=== PATIENT | male | born 1975 | race Caucasian/White ===

== ENCOUNTER 2016-10-16 23:03 | Emergency (ER) | payer OTHER ==
[~2016-10-16] VITALS: Ht 182.9 cm; Wt 104.3 kg
[~2016-10-16 23:03] MED LIST: BACTRIM DS TAB1 EACH PO; KEFLEX500 M1 PO; PERCOCET 5-3251 EACH PO
--- NOTE | 2016-10-16 23:32 | ED CARDIAC/CP/PALPITATIONS ---
History of Present Illness General Chief Complaint: Chest Pain Stated Complaint: PER PT CHEST PAIN AND SOB Source: patient Exam Limitations: no limitations Vital Signs & Intake/Output Vital Signs & Intake/Output Vital Signs Date Time Temp Pulse Resp B/P Pulse O2 O2 Flow FiO2 Ox Delivery Rate 10/17 0355 97.0 72 18 117/59 97 Room Air 10/16 2343 146/87 10/16 2342 141/84 10/16 2322 98 Room Air 10/16 2315 97.8 83 20 147/85 94 Room Air ED Intake and Output 10/17 0000 10/16 1200 Intake Total Output Total Balance Patient 230 lb Weight Allergies Coded Allergies: NO KNOWN ALLERGIES (07/17/16) Reconcile Medications Cephalexin (Keflex) 500 MG CAPSULE 1 CAP PO 4 TIMES/DAY cellulitis Oxycodone HCl/Acetaminophen (Percocet 5-325 MG Tablet) 1 EACH TABLET 1 TAB PO 4XDP PRN PAIN TEN...[id number] Sulfamethoxazole/Trimethoprim (Bactrim Ds Tablet) 1 EACH TABLET 1 TAB PO BID cellulitis Triage Note: PT FROM HOME C/O CP. PT STATES THAT CP STARTED YESTERDAY INTERMITTENTLY WITH SOME ACID REFLUX. PT STATES THAT PAIN WORSENED TODAY AND INTENSIFIED RADIATING TO RIGHT ARM TINGLING, PT DENIES JAW PAIN, WONG DIZZINESS. EKD IMMEDIATELY TO [facility], PT BROUGHT TO 1 AND SHIVA STUDENT IN FOR EVAL. Triage Nurses Notes Reviewed? yes HPI: Patient is a 40 year old male with history of diabetes presents complaining of chest pain x 2 days. Pain is a midsternal tightness sensation that worsens with deep breath, palpation, coughing. Pain is currently a 7 out of 10. Pain is worse today than yesterday. Associated dyspepsia sensation yesterday. Took tums yesterday with no improvement. Approximately 2 hours ago patient developed right scapular pain. Patient had a cough and upper respiratory infection last week that he reports has resolved. Denies orthopnea, lower extremity pain, lower extremity swelling, fevers. (MIRZA PABLO) Past History Travel History Traveled to [place] past 21 day No Medical History Any Pertinent Medical History? 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 No (MIRZA PABLO) Review of Systems Review of Systems Constitutional: Reports: no symptoms. EENTM: Reports: no symptoms. Respiratory: Reports: cough (LAST WEEK, RESOLVED), short of breath (WITH DEEP BREATH). Cardiovascular: Reports: see HPI. GI: Denies: abdominal pain, nausea, vomiting. Genitourinary: Reports: no symptoms. Musculoskeletal: Reports: back pain (RIGHT SCAPULA). Skin: Reports: no symptoms. Neurological/Psychological: Reports: no symptoms. Hematologic/Endocrine: Reports: no symptoms. Immunologic/Allergic: Reports: no symptoms. (MIRZA PABLO) Physical Exam Physical Exam General Appearance: well developed/nourished, alert, awake, obese Head: atraumatic, normal appearance Eyes: Bilateral: normal appearance, PERRL, EOMI. Ears, Nose, Throat: normal pharynx, normal ENT inspection, hearing grossly normal Neck: normal inspection, supple, full range of motion Respiratory: lungs clear, MIDSTERNAL CHEST TENDERNESS THAT REPRODUCES PATIENT'S PAIN, MILD TACHYPNEA Cardiovascular: regular rate/rhythm, NO APPRECIABLE MURMUR, RUB, GALLOP Peripheral Pulses: 2+ radial (R), 2+ radial (L), 2+ dorsalis pedis (R), 2+ dorsalis pedis (L) Back: normal inspection, normal range of motion, RIGHT SCAPULAR TENDERNESS Extremities: normal inspection, normal capillary refill, normal range of motion, no edema, NO CALF TENDERNESS Neurologic/Psych: no motor/sensory deficits, awake, alert, oriented x 3, normal mood/affect Skin: intact, normal color, warm/dry Lymphatic: no anterior cervical andreia Core Measures ACS in differential dx? Yes ASA ordered for poss ACS? Yes-ordered Severe Sepsis Present: No Septic Shock Present: No (MIRZA PABLO) Progress Differential Diagnosis: AMI, aortic dissection, costochondritis, musculoskeletal pain, myocarditis, pancreatitis, pericarditis, pneumonia, pneumothorax, pulmonary embolism, unstable angina Plan of Care: Orders Procedure Date/time Status TROPONIN LEVEL 10/17 0324 Complete EKG 01/04 0324 Active D-DIMER 10/17 0057 Complete Add-on Test (ER Only) 10/16 2341 Active Telemetry/Golf Course Designer 10/16 2321 Active TROPONIN LEVEL 10/16 2321 Complete COMPREHENSIVE METABOLIC PANEL 10/16 2321 Complete CBC WITHOUT DIFFERENTIAL 10/16 2321 Complete EKG 10/16 2303 Active Laboratory Tests 10/17/16 0332: Troponin I < 0.01 10/17/16 0127: D-Dimer < 200 10/16/16 2352: Anion Gap 15, Estimated GFR > 60, BUN/Creatinine Ratio 12.9, Glucose 283 H, Calcium 9.3, Total Bilirubin 0.6, AST 15 L, ALT 39, Alkaline Phosphatase 158 H , Troponin I < 0.01, Total Protein 7.0, Albumin 3.9, Globulin 3.1, Albumin/ Globulin Ratio 1.3, CBC w Diff NO MAN DIFF REQ, RBC 5.48, MCV 85.3, MCH 29.5, RDW 13.2, MPV 8.1, Gran % 62.9, Lymphocytes % 30.3, Monocytes % 4.4, Eosinophils % 1.1, Basophils % 1.3, Absolute Granulocytes 7.2 H, Absolute Lymphocytes 3.4, Absolute Monocytes 0.5, Absolute Eosinophils 0.1, Absolute Basophils 0.2, PUBS MCHC 34.5 2344: Patient's right upper extremity and left upper extremity blood pressures essentially even. 0025: Plan for repeat EKG and troponin discussed with patient. Patient resting comfortably. No tachypnea presently. Discussed with and signed out to Dr. Sparks. (FATOU SHANNON,MIRZA) Diagnostic Imaging: Viewed by Me: Radiology Read. Discussed w/RAD: Radiology Read. Initial ED EKG: normal sinus rhythm 81 bpm normal axis, normal intervals, small Q waves inferior leads, no acute change from previous EKG Prior EKG: unchanged Rhythm Strip: normal sinus rhythm (MIRZA PABLO) CXR Impression: PATIENT: HAILEY PACE JR PRESENT AGE: 40 PATIENT ACCOUNT NO: [id number] : 77 LOCATION: [facility] ORDERING PHYSICIAN: MIRZA SHANNON SERVICE DATE: 10/16/16 EXAM TYPE: RAD - XRY-PORTABLE CHEST XRAY EXAMINATION: XR PORTABLE CHEST CLINICAL INFORMATION: Chest pain COMPARISON: 11/07/2011 TECHNIQUE: Portable view of the chest was obtained. FINDINGS: Examination is slightly limited by respiratory motion with blurring of the lung markings. No focal consolidation, pneumothorax, or pleural effusion. Cardiac and mediastinal contours are normal. Pulmonary vasculature is unremarkable. Osseous thorax is unremarkable. IMPRESSION: No acute cardiopulmonary findings. DICTATED BY: MODE MATTHEW MD DATE/TIME DICTATED:10/17 PLATFORM MILL SUPERVISOR:ELIEZER DATE/TIME TRANSCRIBED:10/17/1621 CONFIDENTIAL, DO NOT COPY WITHOUT APPROPRIATE AUTHORIZATION. <Electronically signed in Other Vendor System> SIGNED BY: MODE MATTHEW MD 10/17/1625 Repeat EKG: unchanged (MIGUELITO FELIX,NATHAN Pickard) Departure Departure Condition: Stable Clinical Impression Primary Impression: Chest pain Qualifiers: Chest pain type: unspecified Qualified Code: R07.9 - Chest pain, unspecified Departure Forms: Customer Survey General Discharge Information (MIRZA PABLO) Departure Disposition: HOME OR SELF CARE Referrals: DOYLE FELIX,BELEM LOJA (PCP/Family) Additional Instructions: RETURN IF SYMPTOMS WORSEN OR FOR ANY CONCERNS FOLLOW UP WITH THE CLINICAL ADMINISTRATIVE COORDINATOR PROVIDED THIS WEEK PA/SHIPFITTER Co-Sign Statement Statement: ED Attending supervision documentation- [X] I saw and evaluated the patient. I have also reviewed all the pertinent lab results and diagnostic results. I agree with the findings and the plan of care as documented in the PA's/SHIPFITTER's documentation. [X] I have reviewed the ED Record and agree with the PA's/SHIPFITTER's documentation. [] Additions or exceptions (if any) to the PAs/SHIPFITTER's note and plan are summarized below: [] (NATHAN SPARKS MD) Critical Care Note Critical Care Note Critical Care Time: non-applicable (MIRZA PABLO)
[2016-10-17 00:01] LABS: ABSOLUTE BASOPHIL COUNT 0.2 /CUMM (0.0-0.2); ABSOLUTE EOSINOPHIL COUNT 0.1 /CUMM (0.0-0.7); ABSOLUTE GRANULOCYTE CT 7.2 /CUMM (1.4-6.5); ABSOLUTE LYMPH COUNT 3.4 /CUMM (1.2-3.4); ABSOLUTE MONOCYTE COUNT 0.5 /CUMM (0.10-0.60); BASOPHIL % 1.3 % (0.0-2.0); EOSINOPHIL % 1.1 % (0-5); GRANULOCYTE % 62.9 % (42.2-75.2); HEMATOCRIT 46.8 % (42-52); MEAN CORPUSCULAR HGB 29.5 PG (27.0-31.0); MEAN CORPUSCULAR HGB CONC 34.5 G/DL (33.0-37.0); MEAN CORPUSCULAR VOLUME 85.3 FL (80.0-94.0); MEAN PLATELET VOLUME 8.1 FL (7.4-10.4); PLATELET COUNT 238 /CUMM (130-400); RBC DISTRIBUTION WIDTH 13.2 % (11.5-14.5); RED BLOOD CELL CT 5.48 /CUMM (4.70-6.10); WHITE BLOOD CELL COUNT 11.4 /CUMM (4.8-10.8)
--- NOTE | 2016-10-17 00:26 | RADIOLOGY REPORT ---
EXAMINATION: XR PORTABLE CHEST CLINICAL INFORMATION: Chest pain COMPARISON: 11/07/2011 TECHNIQUE: Portable view of the chest was obtained. FINDINGS: Examination is slightly limited by respiratory motion with blurring of the lung markings. No focal consolidation, pneumothorax, or pleural effusion. Cardiac and mediastinal contours are normal. Pulmonary vasculature is unremarkable. Osseous thorax is unremarkable. IMPRESSION: No acute cardiopulmonary findings.
[2016-10-17 03:55] VITALS: BP 117/59
== END 2016-10-17 04:28 ==
LOC: ERH 23:03
PROVIDERS: Physician Assistant
DX: R07.89 Other chest pain (principal)
CPT/HCPCS: 1263; 93005; 93010

== ENCOUNTER 2017-01-10 23:16 | Emergency (ER) | payer OTHER ==
[~2017-01-10] VITALS: Ht 185.4 cm; Wt 133.8 kg
[2017-01-11] MEDS ORDERED: METFORMIN HCL1000 M1 PO (00:11)
[2017-01-11] MEDS ORDERED: GLIMEPIRIDE2 MG PO (00:11)
[2017-01-11 00:50] LABS: ABSOLUTE BASOPHIL COUNT 0.1 /CUMM (0.0-0.2); ABSOLUTE EOSINOPHIL COUNT 0.3 /CUMM (0.0-0.7); ABSOLUTE GRANULOCYTE CT 6.3 /CUMM (1.4-6.5); ABSOLUTE LYMPH COUNT 2.7 /CUMM (1.2-3.4); ABSOLUTE MONOCYTE COUNT 0.4 /CUMM (0.10-0.60); BASOPHIL % 0.6 % (0.0-2.0); EOSINOPHIL % 2.6 % (0-5); GRANULOCYTE % 64.7 % (42.2-75.2); MEAN CORPUSCULAR HGB 28.7 PG (27.0-31.0); MEAN CORPUSCULAR HGB CONC 34.7 G/DL (33.0-37.0); MEAN CORPUSCULAR VOLUME 82.5 FL (80.0-94.0); MEAN PLATELET VOLUME 8.2 FL (7.4-10.4); PLATELET COUNT 238 /CUMM (130-400); RBC DISTRIBUTION WIDTH 13.5 % (11.5-14.5); RED BLOOD CELL CT 5.69 /CUMM (4.70-6.10); WHITE BLOOD CELL COUNT 9.7 /CUMM (4.8-10.8)
--- NOTE | 2017-01-11 01:01 | ED GENERAL ADULT ---
History of Present Illness General Chief Complaint: General Adult Stated Complaint: HIGH SUGAR,FACIAL NUMBNESS Source: patient, old records Exam Limitations: no limitations Vital Signs & Intake/Output Vital Signs & Intake/Output Vital Signs Date Time Temp Pulse Resp B/P Pulse O2 O2 Flow FiO2 Ox Delivery Rate 01/11 0208 98.3 78 18 130/76 97 Room Air 01/11 0001 98.5 81 20 128/79 96 Room Air Allergies Coded Allergies: No Known Allergies (01/11/17) Reconcile Medications Famotidine (Pepcid) 20 MG TABLET 1 TAB PO BID esophagitis Gabapentin (Neurontin) 100 MG CAPSULE 1 CAP PO TID PRN neuropathy Glimepiride 2 MG TABLET 1 TAB PO DAILY DM (Reported) Metformin HCl 1,000 MG TABLET 0.5 TAB PO BID DM (Reported) Metoclopramide HCl (Reglan) 10 MG TABLET 1 TAB PO 4 TIMES/DAY esophagitis 30 minutes before meals and bedtime Triage Note: TRIAGE: PATIENT TO ER REPORTS "MY SUGAR FELT LIKE IT WAS REALLY HIGH, BURNING IN MY FACE, LIPS GET NUMB, TWITCHY AND NUMBNESS IN BILATERAL FEET/ANKLES." PATIENT ALERT AND ORIENTED. HX DM, TAKES GLIPIZIDE AND METFORMIN (NO INSULIN). Triage Nurses Notes Reviewed? yes Onset: 1 week Duration: day(s):, constant, continues in ED Timing: recent history Severity: moderate No Modifying Factors: none HPI: Several months prior to admission patient complains of numbness to right lower leg extending to foot and episodes of difficulty swallowing food feeling like it gets stuck. 1 week prior to admission patient complains of facial numbness especially cheeks and around lips. He denies fever chills nausea vomiting diarrhea abdominal pain chest pain shortness of breath headache dysuria rash bleeding head strike change in motor function change in bowel bladder habit. Past History Travel History Traveled to [place] past 21 day No Medical History Any Pertinent Medical History? 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 No Review of Systems Review of Systems Constitutional: Reports: see HPI, malaise. EENTM: Reports: no symptoms. Respiratory: Reports: no symptoms. Cardiovascular: Reports: no symptoms. GI: Reports: see HPI. Genitourinary: Reports: no symptoms. Musculoskeletal: Reports: no symptoms. Skin: Reports: no symptoms. Neurological/Psychological: Reports: see HPI, numbness, paresthesia. Hematologic/Endocrine: Reports: no symptoms. Immunologic/Allergic: Reports: no symptoms. All Other Systems: Reviewed and Negative Physical Exam Physical Exam General Appearance: well developed/nourished, alert, awake, anxious, mild distress, obese Head: atraumatic, normal appearance Eyes: Bilateral: normal appearance, PERRL, EOMI. Ears, Nose, Throat: normal pharynx, normal ENT inspection, hearing grossly normal Neck: normal inspection, supple, full range of motion, no midline tenderness Respiratory: normal breath sounds, chest non-tender, no respiratory distress, quiet respiration, lungs clear Cardiovascular: regular rate/rhythm, normal peripheral pulses, norml femoral pulses equa Peripheral Pulses: 4+ carotid (R), 4+ carotid (L) Gastrointestinal: normal bowel sounds, soft, non-tender, no organomegaly Back: normal inspection, normal range of motion Extremities: normal inspection, normal capillary refill, normal range of motion, no edema Neurologic/Psych: no motor/sensory deficits, awake, alert, oriented x 3, normal gait, normal mood/affect, legal intern II-XII nml as tested Reflexes: 2+: bicep (R), bicep (L). Skin: intact, normal color, warm/dry Lymphatic: no anterior cervical andreia Core Measures ACS in differential dx? No CVA/TIA Diagnosis: No Severe Sepsis Present: No Septic Shock Present: No Progress Differential Diagnoses I considered the following diagnoses in my evaluation of the patient: CVA paresthesia neuropathy esophagitis gastritis gastroparesis Plan of Care: Orders Procedure Date/time Status MAGNESIUM 01/11 34 Complete COMPREHENSIVE METABOLIC PANEL 01/11 34 Complete CBC WITHOUT DIFFERENTIAL 01/11 34 Complete Laboratory Tests 01/11/17 0045: Anion Gap 8, Estimated GFR > 60, BUN/Creatinine Ratio 18.6, Glucose 228 H, Calcium 9.4, Magnesium 1.8, Total Bilirubin 0.5, AST 15 L, ALT 41, Alkaline Phosphatase 131 H, Total Protein 6.9, Albumin 3.8, Globulin 3.1, Albumin/ Globulin Ratio 1.2, CBC w Diff NO MAN DIFF REQ, RBC 5.69, MCV 82.5, MCH 28.7, RDW 13.5, MPV 8.2, Gran % 64.7, Lymphocytes % 28.1, Monocytes % 4.0, Eosinophils % 2.6, Basophils % 0.6, Absolute Granulocytes 6.3, Absolute Lymphocytes 2.7, Absolute Monocytes 0.4, Absolute Eosinophils 0.3, Absolute Basophils 0.1, PUBS MCHC 34.7 Initial ED EKG: none Departure Departure Time of Disposition: 199 Disposition: HOME OR SELF CARE Condition: Stable Clinical Impression Primary Impression: Paresthesia of skin Secondary Impressions: Esophagitis, unspecified Referrals: UNKNOWN (PCP/Family) Departure Forms: Customer Survey General Discharge Information RELEASE- WORK Prescriptions: Current Visit Scripts Gabapentin (Neurontin) 1 CAP PO TID PRN neuropathy #30 CAP Famotidine (Pepcid) 1 TAB PO BID #60 TAB Metoclopramide HCl (Reglan) 1 TAB PO 4 TIMES/DAY #30 TAB Ref 1 30 minutes before meals and bedtime Critical Care Note Critical Care Note Critical Care Time: non-applicable
--- NOTE | 2017-01-11 01:19 | RADIOLOGY REPORT ---
EXAMINATION: XR CHEST CLINICAL INFORMATION: Pneumonia. Cough. COMPARISON: Chest radiograph 10/16/2016. TECHNIQUE: 2 views of the chest were obtained. FINDINGS: Lungs are well-expanded. There is no focal consolidative disease, pleural effusion, or pneumothorax. The cardiac silhouette and upper mediastinal contours are normal. No acute osseous finding. IMPRESSION: Normal chest radiograph.
[2017-01-11] MEDS ORDERED: REGLAN10 M1 PO (02:02)
[2017-01-11] MEDS ORDERED: NEURONTIN100 M1 PO (02:02)
[2017-01-11] MEDS ORDERED: PEPCID20 M1 PO (02:02)
[2017-01-11 02:08] VITALS: BP 130/76
== END 2017-01-11 02:09 ==
LOC: ERH 23:16
PROVIDERS: Emergency Medicine
DX: R20.2 Paresthesia of skin (principal); K20.9 Esophagitis, unspecified; E11.9 Type 2 diabetes mellitus without complications; Z79.84 Long term (current) use of oral hypoglycemic drugs

== ENCOUNTER 2018-03-12 23:39 | Emergency (ER) | payer OTHER ==
[~2018-03-12] VITALS: Ht 185.4 cm; Wt 131.5 kg
[~2018-03-12 23:39] MED LIST changes: +GLIMEPIRIDE2 MG PO; +IBUPROFEN800 M1 PO; +MECLIZINE HCL25 MG PO; +METFORMIN HCL1000 M1 PO; +NEURONTIN100 M1 PO; +PEPCID20 M1 PO; +REGLAN10 M1 PO; +TESSALON PERLE100 M1 PO; +VENTOLIN HFA18 GM INH
--- NOTE | 2018-03-13 01:09 | ED GENERAL ADULT ---
History of Present Illness General Chief Complaint: Abdominal Pain/Flank Pain Stated Complaint: ABD PAIN,COUGH SINCE SATURDAY Vital Signs & Intake/Output Vital Signs & Intake/Output Vital Signs Date Time Temp Pulse Resp B/P B/P Pulse O2 O2 Flow FiO2 Mean Ox Delivery Rate 03/13 0034 97.2 78 18 133/88 98 Room Air Allergies Coded Allergies: No Known Allergies (03/13/18) Reconcile Medications Albuterol Sulfate (Ventolin Hfa) 90 MCG HFA.AER.AD 2 PUF INH Q4-6 PRN PRN WHEEZE, COUGH Benzonatate (Tessalon Perle) 100 MG CAPSULE 1 CAP PO TID PRN COUGH Glimepiride 2 MG TABLET 1 TAB PO DAILY DM (Reported) Ibuprofen 800 MG TABLET 1 TAB PO TID PRN COUGH Meclizine HCl 25 MG TABLET 1 TAB PO BIDPRN PRN dizzy Metformin HCl 1,000 MG TABLET 0.5 TAB PO BID DM (Reported) Triage Note: TRIAGE: PATIENT TO ER FROM HOME W/ COUGH AND GENERALIZED ABD/ BACK AND L SIDE OF BACK PAIN SINCE SATURDAY W/ ONSET OF COUGH, TONIGHT "COUGHED UP BLOOD." PATIENT COUGHED X1 DURING TRIAGE, NON PRODUCTIVE. DENIES SOB. DENIES N/V/D. 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
--- NOTE | 2018-03-13 01:11 | ED GENERAL ADULT ---
History of Present Illness General Chief Complaint: Abdominal Pain/Flank Pain Stated Complaint: ABD PAIN,COUGH SINCE SATURDAY Source: patient Exam Limitations: no limitations Vital Signs & Intake/Output Vital Signs & Intake/Output Vital Signs Date Time Temp Pulse Resp B/P B/P Pulse O2 O2 Flow FiO2 Mean Ox Delivery Rate 03/13 0421 99.9 73 18 110/65 97 Room Air 03/13 0034 97.2 78 18 133/88 98 Room Air Allergies Coded Allergies: No Known Allergies (03/13/18) Triage Note: TRIAGE: PATIENT TO ER FROM HOME W/ COUGH AND GENERALIZED ABD/ BACK AND L SIDE OF BACK PAIN SINCE SATURDAY W/ ONSET OF COUGH, TONIGHT "COUGHED UP BLOOD." PATIENT COUGHED X1 DURING TRIAGE, NON PRODUCTIVE. DENIES SOB. DENIES N/V/D. Triage Nurses Notes Reviewed? yes HPI: Patient is a 42 Y M with PMH of obesity, NIDDM (on metformin and Glimepiride) presented to the ED with chief complaint of abdominal/flank pain, cough. Patient noted that he started to have abominal/flank pain since saturday, described abdominal/left lower chest pain, pressure like, 5/10, constant, no radiation, no relation to foot or exercise. The left flank pain is again 5/10, radiation to back, constant, increased with deep breathing, no relation to food, denied any change in urine or stool color, N or V. He also complained of chronic cough for a long time, increases with lying back or lying on the left side, no sputum but was associated with bringing up blood for one episode today. Denied any post nasal discharge, burning, bloating or dyspepsia. Patient also visited ED in November 2017 for shortness of breathing and was discharged on inhalers, with no significant improvement. The system is negative except as above. 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 Denied any upper respiratory tract infection symptoms recently, he has 3 cats at home, the night moving or having new pets at home. Lab works from earlier this month ordered by Dr. Nicole were insignificant. (Jerad Cruz MD,Claudia Pressley) Reconcile Medications Albuterol Sulfate (Ventolin Hfa) 90 MCG HFA.AER.AD 2 PUF INH Q4-6 PRN PRN WHEEZE, COUGH Benzonatate (Tessalon Perle) 100 MG CAPSULE 1 CAP PO TID PRN COUGH Dicyclomine HCl 20 MG TABLET 1 TAB PO 4 TIMES/DAY PRN abdominal pain Glimepiride 2 MG TABLET 1 TAB PO DAILY DM (Reported) Ibuprofen 800 MG TABLET 1 TAB PO TID PRN COUGH Meclizine HCl 25 MG TABLET 1 TAB PO BIDPRN PRN dizzy Metformin HCl 1,000 MG TABLET 0.5 TAB PO BID DM (Reported) Omeprazole 20 MG TABLET.DR 1 TAB PO DAILY [facility] (Everardo Glynn MD) Past History Travel History Traveled to [place] past 21 day No Medical History Neurological: NONE EENT: NONE Cardiovascular: NONE Respiratory: NONE Gastrointestinal: NONE Hepatic: NONE Renal: NONE Musculoskeletal: NONE Psychiatric: NONE Endocrine: diabetes Blood Disorders: NONE Cancer(s): NONE 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 see below for history Family History Hx Contributory? No (Everardo Glynn MD) Review of Systems Review of Systems Constitutional: Reports: see HPI. (Jerad Cruz MD,Claudia Pressley) Review of Systems EENTM: Reports: no symptoms. Respiratory: Reports: see HPI, cough, sputum production. Cardiovascular: Reports: no symptoms. GI: Reports: see HPI, abdominal pain. Genitourinary: Reports: no symptoms. Musculoskeletal: Reports: no symptoms. Skin: Reports: no symptoms. Neurological/Psychological: Reports: no symptoms. Hematologic/Endocrine: Reports: no symptoms. Immunologic/Allergic: Reports: no symptoms. All Other Systems: Reviewed and Negative (Everardo Glynn MD) Physical Exam Physical Exam General Appearance: well developed/nourished, no apparent distress, alert, awake , obese Head: atraumatic, normal appearance Ears, Nose, Throat: normal pharynx, normal ENT inspection, no source of bleeding appreciated Neck: supple Respiratory: normal breath sounds Cardiovascular: regular rate/rhythm Gastrointestinal: soft, non-tender Extremities: no edema Neurologic/Psych: no motor/sensory deficits Core Measures ACS in differential dx? No CVA/TIA Diagnosis: No Sepsis Present: No Sepsis Focused Exam Completed? No (Jerad Cruz MD,Claudia Pressley) Physical Exam Eyes: Bilateral: normal appearance, PERRL, EOMI. Peripheral Pulses: 4+ carotid (R), 4+ carotid (L) Back: normal inspection, normal range of motion, no vertebral tenderness Reflexes: 2+: bicep (R), bicep (L). Skin: intact, normal color, warm/dry Lymphatic: no anterior cervical andreia (Renard FELIX,Everardo) Progress Differential Diagnoses I considered the following diagnoses in my evaluation of the patient: [ Pancreatitis, peptic ulcer disease, bronchitis, lung mass, nephrolithiasis] Plan of Care: Orders Procedure Date/time Status URINALYSIS 03/13 149 Complete TROPONIN LEVEL 03/13 149 Complete LIPASE 03/13 149 Complete COMPREHENSIVE METABOLIC PANEL 03/13 149 Complete CBC WITHOUT DIFFERENTIAL 03/13 149 Complete AMYLASE 03/13 149 Complete EKG 03/13 149 Active Hemoccult 03/13 UNK Active Laboratory Tests 03/13/18 0202: Urine Color YEL, Urine Clarity CLEAR, Urine pH 6.0, Ur Specific [place] >= 1.030 , Urine Protein NEG, Urine Ketones NEG, Urine Nitrite NEG, Urine Bilirubin NEG, Urine Urobilinogen 0.2, Ur Leukocyte Esterase NEG, Ur Microscopic EXAM NOT REQUIRED, Urine Hemoglobin NEG, Urine Glucose 100 H 03/13/18 0155: Anion Gap 12, Estimated GFR > 60, BUN/Creatinine Ratio 18.6, Glucose 230 H, Calcium 9.2, Total Bilirubin 0.5, AST 18, ALT 43, Alkaline Phosphatase 97, Troponin I < 0.01, Total Protein 6.9, Albumin 3.9, Globulin 3.0, Albumin/ Globulin Ratio 1.3, Amylase < 30 L, Lipase 37, CBC w Diff MAN DIFF ORDERED, RBC 5.45, MCV 85.0, MCH 29.2, MCHC 34.4, RDW 13.5, MPV 8.1, Gran % 50.1, Lymphocytes % 39.8, Monocytes % 5.6, Eosinophils % 4.0, Basophils % 0.5, Absolute Granulocytes 4.4, Segmented Neutrophils 51, Absolute Lymphocytes 3.5 H, Lymphocytes 37, Monocytes 6, Absolute Monocytes 0.5, Eosinophils 5, Absolute Eosinophils 0.4, Basophils 1, Absolute Basophils 0, Platelet Estimate ADEQUATE, Polychromasia 1+, Ovalocytes FEW, Stomatocytes FEW, Fld Total RBCs Counted 100 Diagnostic Imaging: Viewed by Me: CT Scan. Initial ED EKG: NO change compared to previous Comments: Laboratory studies were performed,, LFT and pancreas enzymes were normal. CAT scan was performed which revealed gastritis. Pepcid and Reglan were administered, patient reported significant improvement. It was decided to discharge patient on oral PPI and symptomatic treatment with dicyclomine with recommendations to follow with PCP. (Jerad Cruz MD,Claudia Pressley) Differential Diagnoses I considered the following diagnoses in my evaluation of the patient: (Everardo Glynn MD) Departure Departure Disposition: HOME OR SELF CARE Condition: Stable Clinical Impression Primary Impression: Gastritis Referrals: Dean Nicole MD (PCP/Family) Please follow with your PCP within one week of discharge, please infrom him about your admission at ED. Additional Instructions: Please follow with your PCP within one week of discharge. Please take your medications as administered, please come back to hospital if symptoms worsen. Departure Forms: Customer Survey General Discharge Information Prescriptions: Current Visit Scripts Omeprazole 1 TAB PO DAILY #30 TAB Dicyclomine HCl 1 TAB PO 4 TIMES/DAY PRN abdominal pain #60 TAB (Jerad Cruz MD,Claudia Pressley) Resident Co-Sign Statement Statement: ED Attending supervision documentation- x I saw and evaluated the patient. I have also reviewed all the pertinent lab results and diagnostic results. I agree with the findings and the plan of care as documented in the Resident's documentation. [] I have reviewed the ED Record and agree with the Resident's documentation. [] Additions or exceptions (if any) to the Resident's note and plan are summarized below: [] (Everardo Glynn MD) Critical Care Note Critical Care Note Critical Care Time: non-applicable (Everardo Glynn MD)
[2018-03-13 02:10] LABS: ABSOLUTE BASOPHIL COUNT 0 /CUMM (0.0-0.2); ABSOLUTE EOSINOPHIL COUNT 0.4 /CUMM (0.0-0.7); ABSOLUTE GRANULOCYTE CT 4.4 /CUMM (1.4-6.5); ABSOLUTE LYMPH COUNT 3.5 /CUMM (1.2-3.4); ABSOLUTE MONOCYTE COUNT 0.5 /CUMM (0.10-0.60); BASOPHIL % 0.5 % (0.0-2.0); GRANULOCYTE % 50.1 % (42.2-75.2); HEMATOCRIT 46.3 % (42-52); MEAN CORPUSCULAR HGB 29.2 PG (27.0-31.0); MEAN CORPUSCULAR HGB CONC 34.4 G/DL (33.0-37.0); MEAN PLATELET VOLUME 8.1 FL (7.4-10.4); PLATELET COUNT 257 /CUMM (130-400); RBC DISTRIBUTION WIDTH 13.5 % (11.5-14.5); RED BLOOD CELL CT 5.45 /CUMM (4.70-6.10); WHITE BLOOD CELL COUNT 8.8 /CUMM (4.8-10.8)
--- NOTE | 2018-03-13 02:28 | RADIOLOGY REPORT ---
EXAMINATION: XR CHEST CLINICAL INFORMATION: Hemoptysis. Chronic cough. COMPARISON: 12/03/2017 TECHNIQUE: 2 views of the chest were obtained. FINDINGS: The lungs are well expanded. There is no focal consolidation, edema, or effusion. No pneumothorax. The cardiomediastinal silhouette is within normal limits. No acute osseous abnormality. Mild degenerative changes of the spine. IMPRESSION: No acute pulmonary finding.
--- NOTE | 2018-03-13 03:42 | CT SCAN REPORT ---
EXAMINATION: CT ABDOMEN AND PELVIS WITH CONTRAST CLINICAL INFORMATION: Left flank pain. Epigastric pain, abdominal tenderness. COMPARISON: None TECHNIQUE: Multidetector volumetric imaging was performed of the abdomen and pelvis following IV administration of 95 mL of Optiray 320 intravenous contrast. Sagittal and coronal reformatted images were obtained on the technologist's workstation. DLP: 1307 mGy-cm FINDINGS: LUNG BASES: Minimal atelectasis in the lingula. Cardiac structures are unremarkable. LIVER, GALLBLADDER, AND BILIARY TREE: The liver is normal in size, shape, and attenuation. No focal hepatic lesion or biliary ductal dilatation is present. The gallbladder is contracted with no evidence of radiopaque gallstones, gallbladder wall thickening, or obvious pericholecystic inflammatory changes. PANCREAS: Unremarkable. SPLEEN: Unremarkable. ADRENAL GLANDS: Unremarkable. KIDNEYS AND URETERS: The kidneys are normal in size, shape, and attenuation. No hydronephrosis, hydroureter, or calculi seen. No perinephric stranding. BLADDER: Unremarkable. GASTROINTESTINAL TRACT: There may be mild wall thickening in the region of the gastric fundus. The small bowel is unremarkable. No dilated loops of bowel or evidence of obstruction. Normal appendix. No colonic wall thickening or inflammatory change. No free air or free fluid. ABDOMINAL WALL: No significant hernia is appreciated. LYMPH NODES: Normal. VASCULAR: Unremarkable. PELVIC VISCERA: The prostate and seminal vesicles are unremarkable. OSSEOUS STRUCTURES: No acute or suspicious osseous abnormality. IMPRESSION: Question of mild wall thickening of the gastric fundus. Evaluation of the stomach is limited on CT. No free air or fluid collection. No additional acute findings in the abdomen and pelvis. No inflammatory changes.
[2018-03-13] MEDS ORDERED: DICYCLOMINE HCL20 M1 PO (04:18)
[2018-03-13] MEDS ORDERED: OMEPRAZOLE20 M3 PO (04:18)
[2018-03-13 04:21] VITALS: BP 110/65
== END 2018-03-13 04:38 ==
LOC: ERH 23:39
PROVIDERS: Radiology Vascular & Interventional Radiology
DX: K29.70 Gastritis, unspecified, without bleeding (principal); R10.9 Unspecified abdominal pain; R07.89 Other chest pain; R05 Cough
CPT/HCPCS: 71046; 74177; 81003; 93005; 93010; 96365; 96375; J2765